=== PATIENT | female | born 1965 ===

== ENCOUNTER 2022-04-01 19:50 | Emergency (ER) | payer OTHER ==
[~2022-04-01] VITALS: Ht 157 cm; Wt 90.7 kg
[2022-04-01 20:35] VITALS: BP 129/73
== END 2022-04-01 20:35 | disposition home or self-care (01) ==
LOC: ER FS 19:52
DX: M25.512 Pain in left shoulder (principal); R51.9 Headache, unspecified; Z28.310 Unvaccinated for COVID-19
CPT/HCPCS: 99283